=== PATIENT | male | born 1970 | race Caucasian/White ===

== ENCOUNTER → 2020-09-04 11:38 | Outpatient (BNVA) | payer BC, SELFPAY | PROVIDERS: PCP Physician Assistant Medical; Visit Provider Surgery | DX: Z20.828 Contact with and (suspected) exposure to other viral communicable diseases (principal); D48.9 Neoplasm of uncertain behavior, unspecified; K42.9 Umbilical hernia without obstruction or gangrene | CPT/HCPCS: 87635; 88304 ==

== ENCOUNTER → 2020-09-25 11:24 | Outpatient (BNVA) | payer BC, SELFPAY | PROVIDERS: PCP Physician Assistant Medical; Visit Provider Surgery | DX: Z01.812 Encounter for preprocedural laboratory examination (principal); Z20.828 Contact with and (suspected) exposure to other viral communicable diseases | CPT/HCPCS: 87635 ==

== ENCOUNTER 2020-10-14 05:43 | Day surgery (SDC) | payer BC, SELFPAY ==
[2020-09-29 10:33] VITALS: BMI 42.0
--- NOTE | 2020-09-29 12:34 | PC.NURSE ---
Pt had been rescheduled for surgery, but ended up being positive for covid. After checking with nurse practitioner manager and infection control, the patient will be rescheduled for a later date. Dr Griffin notified and Margarette notified. Pt will not need to be retested.
[2020-10-14] VITALS (13 sets, daily range): BP systolic 106–143; BP diastolic 54–89; PULSE 55–93; RESP 16–20; TEMP 36.1–36.8; O2SAT 90–99
[2020-10-14] MEDS: sodium chloride 0.9% 1,000 ML 30 ML IV (06:16)
--- NOTE | 2020-10-14 06:32 | ANES.PREANE2 ---
Pre-Anesthetic Assessment Pre-Anesthetic Assessment: Height/Weight: Height 1.83 m Weight 142.882 kg Temp Pulse Resp BP Pulse Ox 98.2 F 93 16 143/89 96 10/14/20 06:06 10/14/20 06:06 10/14/20 06:06 10/14/20 06:06 10/14/20 06:06 Preop Diagnosis: Umbilical hernia Proposed Procedure: Operation Date: 10/14/20 07:00 Proposed Procedures p Laparoscopic Poss Umbilical Hernia Repair w/ Mesh [id number] K42.9(Not Applicable) - Huber Griffin MD Familial anesthetic complications: None Was Beta Daryn taken within 24 hours: N/A Last intake: Intake Last Liquid Date 10/14/20 Last Liquid Time 04:30 Last Solid Date 10/13/20 Last Solid Time 19:00 Social: Social History: Tobacco Exam: Pre-Anes Outpt Exam: alert, oriented x 3, clear to auscultation bilaterally and regular rate & rhythm Airway: Cervical ROM: WNL MP: 4 Dentition: Full Additional comments: large tongue and neck circumference Pulmonary: Pulmonary: Sleep apnea (CPAP) CV/HEM: CV/HEM: HTN GI: GI: GERD Metabolic: Metabolic: Morbid obesity Anesthetic Plan: ASA status: 3 Anesthesia: General Risk of > 500 ml blood loss (7ml/kg in children): No Meds/Allergies Current Medications: Current Medications Generic Name Dose Route Start Last Admin Trade Name Freq PRN Reason Stop Dose Admin Sodium Chloride 1,000 mls @ 30 ml s/hr 10/14/20 06:00 10/14/20 06:16 Sodium Chloride 0.9% IV 10/15/20 05:59 30 mls/hr .Q24H YECENIA Administration PFSH Anesthesia PFSH: Medical History Anxiety Hypertension Kidney calculus LOREN (obstructive sleep apnea) Umbilical hernia Surgical History H/O circumcision H/O: vasectomy Family History Other Cancer Hypertension Denies family history of Anesthesia complication Bleeding disorder Social History Smoking and tobacco status: current every day smoker Alcohol intake: current Alcohol intake frequency: holidays/special occasions only Household members: spouse Marital status: Current occupational status: employed History of recent travel: No Data Anesthesia Cardiac Studies: No Data to Display
--- NOTE | 2020-10-14 07:07 | P.HP_ITS ---
Same Day Surgery H&P Indication for Procedure/HPI DATE OF PROCEDURE: October 14, 2020 CHIEF COMPLAINT/INDICATIONFOR SURGICAL PROCEDURE: hernia repair PREOP DIAGNOSIS: Umbilical hernia PLANNED PROCEDRUE: Operation Date: 10/14/20 07:00 Proposed Procedures p Laparoscopic Poss Umbilical Hernia Repair w/ Mesh [id number] K42.9(Not Applicable) - Huber Griffin MD Medications/Allergies* Home Medications Medication Instructions Recorded Confirmed Type diltiazem HCl 120 mg 120 mg PO TID cap 08/27/20 10/14/20 History capsule,extended release 12 hr fluoxetine 20 mg capsule 60 mg PO DAILY cap 08/27/20 10/14/20 History ibuprofen 800 mg tablet 800 mg PO Q8H PRN 08/27/20 10/14/20 History losartan 100 mg tablet 100 mg PO DAILY 08/27/20 10/14/20 History multivitamin 1 tab PO DAILY 08/27/20 10/14/20 History oxygen-air delivery systems #1 08/27/20 09/04/20 History pantoprazole 40 mg tablet,delayed 40 mg PO DAILY 08/27/20 10/14/20 History release triamterene 37.5 1 tab PO DAILY 08/27/20 10/14/20 History mg-hydrochlorothiazide 25 mg tablet vitamin B complex 1 tab PO DAILY 08/27/20 10/14/20 History Allergies/Adverse Reactions Allergy/AdvReac Type Severity Reaction Status Date / Time No Known Allergies Allergy Verified 10/14/20 06:05 Current Medications: Generic Name Dose Route Start Last Admin Trade Name Freq PRN Reason Stop Dose Admin Sodium Chloride 1,000 mls @ 30 mls/hr 10/14/20 06:00 10/14/20 06:16 Sodium Chloride 0.9% IV 10/15/20 05:59 30 mls/hr .Q24H YECENIA Administration Pertinent History/Comorbid Conditions* Medical History (Updated 09/04/20 @ 10:43 by Huber Griffin MD) Anxiety Hypertension Kidney calculus LOREN (obstructive sleep apnea) Umbilical hernia Surgical History (Updated 09/04/20 @ 10:43 by Huber Griffin MD) H/O circumcision H/O: vasectomy Family History (Updated 09/04/20 @ 10:25 by Margarette Rachel LPN) Cancer Hypertension Denies family history of Anesthesia complication Bleeding disorder Social History Smoking and tobacco status: current every day smoker Alcohol intake: current Alcohol intake frequency: holidays/special occasions only Household members: spouse Marital status: Current occupational status: employed History of recent travel: No Pertinent Exam Findings alert, oriented x 3 and regular rate & rhythm Recommendations Surgery/Procedure today Coding Level of Care Code Acute Visitor Service Assistant for Sánchez Puri
[2020-10-14] MEDS: fentaNYL 50 mcg/mL INJ 2mL IVP ×2 (08:57→09:02)
[2020-10-14] MEDS: ondansetron 2 mg/ML SDV 2 mL 4 MG IVP (08:57)
[2020-10-14] MEDS: HYDROcodone-acetaminophen 5-325 mg Tablet 1 TAB PO (09:53)
--- NOTE | 2020-10-14 10:20 | PM.OP ---
Operative Report Date of procedure: October 14, 2020 Pre-op Diagnosis: Umbilical hernia Post-op Diagnosis: Incarcerated umbilical hernia containing omentum Procedure Done: Laparoscopic repair of incarcerated umbilical hernia with Proceed 15 x 15 cm mesh Pathology: none sent Surgeon: Huber Griffin Anesthesia: General Condition: stable Disposition: PACU Procedure: The patient was taken to the Operating Room and was intubated under general anesthesia after the antibiotic had been administered. The abdomen was prepped and draped in a sterile manner. Using a 15 blade, a 2-cm incision was made in the left upper quadrant in the anterior axillary line and pneumoperitoneum was created using Verres needle. A 10 mm Katelin port was placed and 15 mm of pneumoperitoneum was created after a 10 mm 30? scope had been introduced. Two 5 mm ports were placed at the level of the umbilicus and in the left lower quadrant under direct visualization. Using a combination of electrocautery and scissors the peritoneum in the midline was taken down and the omental fat within the hernial sac was reduced. A spinal needle was introduced through the abdominal wall and the edges of the hernial defect were marked and measured 6 x 6 cm. A 4 cm margin was marked on the abdominal wall on the outer edge of the hernial defect. 15 x 15 cm proceed mesh was selected and 4 separate 2-0 [place]-Demetrius sutures were placed at the 4 corners of the mesh. A 5 mm camera was introduced and the mesh was introduced through the 10 mm port. Grannie needle was passed through the stab incisions and used to grasp the free ends of the [place]-Demetrius sutures which were used to pull the mesh up against the abdominal wall; 5 mm SecurStraps were placed 1 cm apart along the edge of the mesh to hold it against the abdominal wall. At the end of this, it was noted that the mesh was well positioned over the hernial defect. All ports were removed under direct visualization and there was no bleeding noted from the port sites. 20 cc of saline mixed with 20 of Exparel mixed with 20 cc of 0.5% Marcaine was infiltrated under laparoscopic visualization for a TAP block. The external oblique aponeurosis was approximated at this port site using figure of eight 0 Vicryl suture. The subcutaneous tissue was approximated using 3-0 Vicryl sutures. The skin at all 3 port sites was closed using subcuticular 4-0 Monocryl suture. The stab incisions and the 3 port sites were covered with surgical glue. Abdominal binder was placed at the end of the procedure.
--- NOTE | 2020-10-14 11:00 | ANE.PACU2 ---
Inpatient post-anesthesia follow up: Airway intact: Yes Vital signs: Temperature 97.7 F Pulse Rate 67 Respiratory Rate 18 Blood Pressure 118/74 Pulse Oximetry 90 Oxygen Delivery Me thod Room Air Oxygen Flow Rate 8 Fraction of Inspir ed Oxygen Hydration adequate: Yes Nausea and vomiting: No Pain level: 3 Mental status: Baseline
== END 2020-10-14 10:55 | disposition home or self-care (01) ==
PROVIDERS: PCP Physician Assistant Medical; Visit Provider Surgery
PROC: 0WQF4ZZ Repair Abdominal Wall, Percutaneous Endoscopic Approach (ICD-10-PCS; CPT 49653; principal; 2020-10-14 07:00)
DX: K42.0 Umbilical hernia with obstruction, without gangrene (principal); G47.33 Obstructive sleep apnea (adult) (pediatric); I10 Essential (primary) hypertension; K21.9 Gastro-esophageal reflux disease without esophagitis; E66.01 Morbid (severe) obesity due to excess calories; Z68.41 Body mass index [BMI] 40.0-44.9, adult; F41.9 Anxiety disorder, unspecified; F17.210 Nicotine dependence, cigarettes, uncomplicated
CPT/HCPCS: 49653; 12345; C9290; J0131; J0690; J1100; J2405; J2704; J2710; J3010; J3490; J7030